=== PATIENT | male | born 1995 ===

== ENCOUNTER → 2017-03-01 | Outpatient (CLI) | payer BC | LOC: BMCIMAGING 15:18 | PROVIDERS: ATTEND Podiatrist Foot & Ankle Surgery | DX: M21.621 Bunionette of right foot (principal); M21.622 Bunionette of left foot ==

== ENCOUNTER → 2018-07-25 | Outpatient (CLI) | payer BC | LOC: BMCIMAGING 09:07 | PROVIDERS: ATTEND Podiatrist Foot & Ankle Surgery | DX: Z09 Encounter for follow-up examination after completed treatment for conditions other than malignant neoplasm (principal); Z98.890 Other specified postprocedural states ==

== ENCOUNTER → 2018-08-22 | Outpatient (CLI) | payer BC | LOC: BMCIMAGING 14:16 | PROVIDERS: ATTEND Podiatrist Foot & Ankle Surgery | DX: Z09 Encounter for follow-up examination after completed treatment for conditions other than malignant neoplasm (principal) ==

== ENCOUNTER → 2018-10-03 | Outpatient (CLI) | payer BC | LOC: BMCIMAGING 15:08 ==